=== PATIENT | male | born 1975 | race Caucasian/White ===

== ENCOUNTER 2024-12-20 12:19 | Emergency (ER) | payer BC ==
[~2024-12-20] VITALS: Ht 172.7 cm; Wt 77.0 kg
[2024-12-20 12:31] VITALS: O2SAT 100
[2024-12-20] MEDS: MORPHINE SULFATE 4 MG/ML INJ (FOR IV/IM USE) IV STA (14:04)
[2024-12-20] MEDS ORDERED: OXYC1TAB5 MT (14:55)
[2024-12-20 15:28] VITALS: BP 134/74; PULSE 62; RESP 16; TEMP 37.2; O2SAT 97
== END 2024-12-20 15:30 | disposition home or self-care (01) ==
LOC: ER 12:19
DX: M51.26 Other intervertebral disc displacement, lumbar region (principal); Z79.899 Other long term (current) drug therapy; Z98.890 Other specified postprocedural states
CPT/HCPCS: 99283; 96374; J2270